=== PATIENT | female | born 1945 | race Caucasian/White ===

== ENCOUNTER 2019-06-20 08:34 | Emergency (ER) | payer MEDICARE, OTHER ==
[2019-06-20 09:14] LABS: HEMATOCRIT 32.6 % (36.0-47.0); HEMOGLOBIN 10.9 g/dL (12.0-15.5); MEAN CORPUSCULAR HEMOGLOBIN 30.9 pg (27.0-33.4); MEAN CORPUSCULAR HGB CONC 33.3 g/dL (32.0-36.0); MEAN CORPUSCULAR VOLUME 93 fl (80-97); PLATELET COUNT 194 10^3/uL (150-450); RED BLOOD COUNT 3.52 10^6/uL (3.72-5.28); RED CELL DISTRIBUTION WIDTH 14.4 % (11.5-14.0); WHITE BLOOD COUNT 9.7 10^3/uL (4.0-10.5)
[2019-06-20] MEDS ORDERED: ASPIRIN 81 MG TABLET, CHEWABLE ONE (09:19)
[2019-06-20] MEDS ORDERED: NITROGLYCERIN 0.4 MG/TAB 25 TAB/BOTTLE ONE (09:19)
[2019-06-20] MEDS ORDERED: NORMAL SALINE 500 ML IV ONE ×2 (09:23→09:54)
[2019-06-20] MEDS ORDERED: NITROGLYCERIN 0.4 MG/TAB 25 TAB/BOTTLE SL ONE (09:25)
[2019-06-20] MEDS ORDERED: ASPIRIN 81 MG TABLET, CHEWABLE PO ONE (09:25)
--- NOTE | 2019-06-20 09:30 | ER Document Report ---
ED Cardiac - General Chief Complaint: Chest Pain > 30 Stated Complaint: VOMITING Time Seen by Provider: 06/20/19 09:23 - Related Data Allergies/Adverse Reactions: No Known Allergies Allergy (Verified 06/20/19 09:12) Past Medical History - Social History Smoking Status: Unknown if Ever Smoked Frequency of alcohol use: None Drug Abuse: None Family History: Reviewed & Not Pertinent - As in HPI Patient has suicidal ideation: No Patient has homicidal ideation: No Past Surgical History: Reports: Hx Mastectomy - left, Hx Tonsillectomy Physical Exam - Vital signs Vitals: Temp Pulse Resp Pulse Ox 98.1 F 91 16 96 06/20/19 08:39 06/20/19 08:39 06/20/19 08:39 06/20/19 08:39 - Notes Notes: Patient presents emerge department planing of chest pain that started last night around 10 PM. Substernal and radiated to her right shoulder. She describes a squeezing sensation. She has some diaphoresis with this but no nausea vomiting or shortness of breath. She had several episodes of vomiting over the next hour and then the pain resolved completely and she was able to sleep for about 7 hours. Woke up this morning and noticed that she had the pain again this time going up into her neck. He had no nausea vomiting shortness of breath or diaphoresis with this this morning. She again describes as a squeezing sensation. Also noted she had a temperature of 101. She took Tylenol and said that the pain seemed to get better. Also seem to improve when she was walking around. She had no change in the pain she had to the emergency department the pain is down to about a one half right now any previous history of similar type of pain His medical history is significant for breast cancer on the left treated with mastectomy in the and recently diagnosed with right lung cancer currently undergoing chemo and had radiation in the past this is a chemo was 2 days ago. Usually does not get fever or nausea vomiting with the chemo [place] any diabetes hypertension or heart disease. Social history she smokes but quit years ago no alcohol. History mom had a DVT. Does report recent travel from [place] yesterday about a 10-hour trip stop for [address] reports that her blood pressure normally is low around 100 a Review of systems pertinent positives and negatives in HPI otherwise all the systems were reviewed and acutely negative appetite is been good recently. She said no diarrhea or dysuria. Has had a bilateral earache for several weeks and some nasal congestion. Not any cough or fever until today. Not had any dizziness when she walks around PHYSICIAN EXAM -vital signs are noted triage note and note from triage reviewed blood pressure was noted however repeat on the opposite arm was now 105 systolic GENERAL: Well-appearing, well-nourished and in __no acute distress____ HEAD: Atraumatic, normocephalic. EYES: Pupils equal round and reactive to light, extraocular movements intact, sclera anicteric, conjunctiva are normal. ENT: nares patent, oropharynx clear without exudates. Slightly dry mucous membranes. Unable to visualize the TMs to the wax. The tragus is nontender NECK: supple without lymphadenopathy LUNGS: Breath sounds clear to auscultation bilaterally and equal. No wheezes rales or rhonchi. HEART: Regular rate and rhythm with 2/6 systolic ejection murmur do not appreciate a click. Good radial pulses ABDOMEN: Soft, nontender, normoactive bowel sounds. EXTREMITIES: No deformity, no edema. No palpable cords NEUROLOGICAL: No focal neurological deficits. Moves all extremities spontaneously and on command. PSYCH: Normal mood, normal affect. SKIN: Warm, Dry, normal turgor, no rashes or lesions noted. BACK-nontender in the midline Course - Re-evaluation Re-evalutation: 06/20/19 10:35 ED patient placed on a athletic monitor. Pressure dropped and she was given IV fluids. It remained low Isbell catheter was inserted. She was given 1 nitroglycerin sublingually with complete relief of her pain is remained pain- free. She was given intra-Nitropaste for baby aspirin as well as Plavix and heparin bolus. Discussed case with the night stocker patient has been accepted in transfer at [facility] Medical decision making patient presents with chest pain concerning for an acute coronary syndrome with some ST elevation concerning for inferior IN. And will need to be transferred to higher level of care please be pain-free right now. I did discuss the case with the night stocker they did not wish the patient received TPA. They did not want heparin bolus but not drip - Vital Signs Vital signs: Temp Pulse Resp BP Pulse Ox 98.1 F 91 15 70/57 L 98 06/20/19 08:39 06/20/19 08:39 06/20/19 10:05 06/20/19 10:05 06/20/19 10:05 - Laboratory Result Diagrams: 06/20/19 08:56 06/20/19 08:56 Laboratory results interpreted by me: 06/20/19 06/20/19 08:56 08:56 RBC 3.52 L Hgb 10.9 L Hct 32.6 L RDW 14.4 H Seg Neuts % (Manual) 93 H Band Neutrophils % 1 L Lymphocytes % (Manual) 2 L Abs Neuts (Manual) 9.1 H Abs Lymphs (Manual) 0.2 L BUN 28 H Glucose 157 H - Diagnostic Test Radiology reviewed: Image reviewed - Initial chest x-ray read by me shows evidence of surgery on the left chest and a mass in the right midlung consistent with cancer. She is slightly rotated aorta is tortuous. A repeat film was obtained which is unchanged from the first slightly rotated - EKG Interpretation by Me Additional EKG results interpreted by me: 06/20/19 10:07 Initial EKG showed normal sinus rhythm with some very minimal ST elevation in inferior and possible lateral leads with reciprocal changes in AV L with no old EKGs for comparison. Right-sided EKG showed no ST elevation in v4r. Repeat EKG shows no increase in the ST elevation. This is to be a decrease in the ST e levation in the lateral leads Chest x-ray read by me shows evidence of surgery on the left breast mass in the right lung with cancer slightly rotated v4r Critical Care Note - Critical Care Note Total time excluding time spent on procedures (mins): 35 Discharge - Discharge Clinical Impression: ST elevation (STEMI) myocardial infarction Qualifiers: Involved coronary artery: unspecified coronary artery Qualified Code(s): I21.3 - ST elevation (STEMI) myocardial infarction of unspecified site Hypotension Qualifiers: Hypotension type: unspecified hypotension type Qualified Code(s): I95.9 - Hypotension, unspecified Condition: Serious Disposition: [facility]
[2019-06-20 09:36] LABS: ALBUMIN 4.1 g/dL (3.5-5.0); ALKALINE PHOSPHATASE 57 U/L (38-126); ANION GAP 9 (5-19); ASPARTATE AMINO TRANSFERASE 22 U/L (14-36); BILIRUBIN,DIRECT 0.1 mg/dL (0.0-0.4); BILIRUBIN,TOTAL 0.6 mg/dL (0.2-1.3); BLOOD UREA NITROGEN 28 mg/dL (7-20); CALCIUM 8.8 mg/dL (8.4-10.2); CARBON DIOXIDE 27 mmol/L (22-30); CHLORIDE 104 mmol/L (98-107); CREATINE KINASE 72 U/L (30-135); GLUCOSE 157 mg/dL (75-110); POTASSIUM 3.9 mmol/L (3.6-5.0); TOTAL PROTEIN 7.3 g/dL (6.3-8.2)
[2019-06-20] MEDS ORDERED: ONDANSETRON HCL INJ/PF 4 MG/2 ML SDV ONE (09:36)
[2019-06-20] MEDS ORDERED: ONDANSETRON HCL INJ/PF 4 MG/2 ML SDV IV ONE (09:37)
[2019-06-20] MEDS ORDERED: NITROGLYCERIN 0.4 MG/TAB 25 TAB/BOTTLE SL PRN (09:40)
[2019-06-20 09:43] LABS: ABSOLUTE LYMPHOCYTES# (MANUAL) 0.2 10^3/uL (0.5-4.7); ABSOLUTE MONOCYTES # (MANUAL) 0.4 10^3/uL (0.1-1.4); ANISOCYTOSIS SLIGHT; BAND NEUTROPHILS % (MANUAL) 1 % (3-5); BASOPHILS % (MANUAL) 0 % (0-2); EOSINOPHILS % (MANUAL) 0 % (0-6); LYMPHOCYTES % (MANUAL) 2 % (13-45); MONOCYTES % (MANUAL) 4 % (3-13); OVALOCYTES SLIGHT; PLATELET COMMENT ADEQUATE; SEGMENTED NEUTROPHILS % (MAN) 93 % (42-78); TOTAL CELLS COUNTED 100; TOXIC GRANULATION SLIGHT; TOXIC VACUOLATION PRESENT
[2019-06-20] MEDS ORDERED: CLOPIDOGREL BISULFATE 300 MG TABLET PO ONE (09:46)
[2019-06-20 09:51] LABS: CREATINE KINASE MB < 0.22 ng/mL (<4.55); TROPONIN I < 0.012 ng/mL
[2019-06-20] MEDS ORDERED: NITROGLYCERIN 2% OINTMENT 1 GM PACKET TP ONE (09:54)
[2019-06-20] MEDS ORDERED: HEPARIN SODIUM,PORCINE/D5W 25,000 UNIT/250 ML RTUINJ IV PRN (10:02)
[2019-06-20] MEDS ORDERED: HEPARIN SOD (PORCINE) 1,000 UNIT/ML 10 ML VIAL IV ONE (10:02)
[2019-06-20] MEDS ORDERED: HEPARIN SODIUM,PORCINE/D5W 0 UNIT/0 ML RTUINJ IV ONE (10:06)
[2019-06-20] MEDS ORDERED: HEPARIN SOD (PORCINE) 1,000 UNIT/ML 10 ML VIAL ONE (10:06)
[2019-06-20 10:10] VITALS: BP 70/57
--- NOTE | 2019-06-20 10:11 | RADIOLOGY REPORT (SQ) ---
EXAM DESCRIPTION: CHEST SINGLE VIEW COMPLETED DATE/TIME: 06/20/2019 9:41 am REASON FOR STUDY: bed 9 epigastric pain COMPARISON: None. EXAM PARAMETERS: NUMBER OF VIEWS: One view. TECHNIQUE: Single frontal radiographic view of the chest acquired. RADIATION DOSE: NA LIMITATIONS: None. FINDINGS: LUNGS AND PLEURA: Linear changes with possible mass in the right upper lobe. Volume loss in the right lung. Question related to treatment, or to underlying disease. Left lung is clear. MEDIASTINUM AND HILAR STRUCTURES: No masses. Contour normal. HEART AND VASCULAR STRUCTURES: Heart normal in size. Normal vasculature. BONES: No acute findings. HARDWARE: Left axillary clips. OTHER: No other significant finding. IMPRESSION: Changes in the right lung which could either be related to treatment or related to tumor , particularly perihilar. No acute findings in the left. TECHNICAL DOCUMENTATION: JOB ID: [id number] [employer]- All Rights Reserved Reading location - IP/workstation name: [email or web address]
--- NOTE | 2019-06-20 10:40 | RADIOLOGY REPORT (SQ) ---
EXAM DESCRIPTION: CHEST SINGLE VIEW COMPLETED DATE/TIME: 06/20/2019 10:17 am REASON FOR STUDY: repeat chest pain. COMPARISON: 06/20/2019 928 hours EXAM PARAMETERS: NUMBER OF VIEWS: One view. TECHNIQUE: Single frontal radiographic view of the chest acquired. RADIATION DOSE: NA LIMITATIONS: None. FINDINGS: LUNGS AND PLEURA: Persistent right upper lobe opacity. Volume loss in the right lung. No pneumothorax. Left lung clear. MEDIASTINUM AND HILAR STRUCTURES: Possible right hilar mass. Findings may be related to treatment of lung cancer. HEART AND VASCULAR STRUCTURES: Heart normal in size. Normal vasculature. BONES: No acute findings. HARDWARE: Clips in left axilla. OTHER: No other significant finding. IMPRESSION: Extensive changes in the right lung. Patient has a history of right lung cancer. It is unclear whether the density in the right hilum extending into the right lung is related to therapy, or active malignancy, or both. There is volume loss in the right lung. Left lung clear. TECHNICAL DOCUMENTATION: JOB ID: [id number] [employer]- All Rights Reserved Reading location - IP/workstation name: [email or web address]
[2019-06-20 13:13] LABS: INTERNATIONAL RATION (INR) 0.94; PROTHROMBIN TIME 12.6 SEC (11.4-15.4)
[2019-06-20 13:14] LABS: PARTIAL THROMBOPLASTIN TIME 30.7 SEC (23.5-35.8)
--- NOTE | 2019-06-21 12:09 | EKG REPORT ---
SEVERITY:- ABNORMAL ECG - SINUS RHYTHM ST ELEVATION, CONSIDER INFERIOR INJURY : Confirmed by: Wali Hollingsworth 21-Jun-2019 12:08:58
--- NOTE | 2019-06-21 12:10 | EKG REPORT ---
SEVERITY:- BORDERLINE ECG - SINUS RHYTHM BORDERLINE ST ELEVATION, INFERIOR LEADS : Confirmed by: Wali Hollingsworth 21-Jun-2019 12:09:21
--- NOTE | 2019-06-21 12:10 | EKG REPORT ---
SEVERITY:- ABNORMAL ECG - SINUS RHYTHM RIGHT VENTRICULAR HYPERTROPHY ST ELEVATION, CONSIDER INFERIOR INJURY : Confirmed by: Wali Hollingsworth 21-Jun-2019 12:09:11
== END 2019-06-20 10:15 | disposition short-term general hospital (02) ==
LOC: ER 08:34
DX: I21.3 ST elevation (STEMI) myocardial infarction of unspecified site (principal); R07.9 Chest pain, unspecified; R11.10 Vomiting, unspecified; M25.511 Pain in right shoulder; R61 Generalized hyperhidrosis; R50.9 Fever, unspecified; Z85.3 Personal history of malignant neoplasm of breast; Z90.10 Acquired absence of unspecified breast and nipple
CPT/HCPCS: 93005; 99291; 96361; 51702; 96374; 96375; 36415; 82553; 82550; 85025; 85610; 85730; 80053; 84484; 71045; 93010; A9270 ×4; J1644; J2405; J7040; J3490